=== PATIENT | male | born 1985 | race Caucasian/White ===

== ENCOUNTER 2022-11-09 20:52 | Emergency (ER) | payer SELFPAY ==
[~2022-11-09] VITALS: Ht 195.6 cm; Wt 217.7 kg
[2022-11-10] MEDS ORDERED: ULTRAM50 MG PO (00:07)
[2022-11-10 00:14] VITALS: BP 173/99
== END 2022-11-10 00:28 | disposition home or self-care (01) | DRG 563 ==
LOC: ED 20:52
DX: S83.91XA Sprain of unspecified site of right knee, initial encounter (principal); E66.9 Obesity, unspecified; X50.9XXA Other and unspecified overexertion or strenuous movements or postures, initial encounter

== ENCOUNTER 2022-12-07 00:19 | Emergency (ER) | payer SELFPAY ==
[~2022-12-07] VITALS: Ht 195.6 cm; Wt 220.0 kg
[~2022-12-07 00:19] MED LIST: ULTRAM50 MG PO
[2022-12-07 01:02] LABS: BASO% 0.4 % (0-3); EOS% 4.6 % (0-8); HEMATOCRIT 40.9 % (39.0-50.0); HEMOGLOBIN 12.2 g/dl (14.0-18.0); IMMATURE GRANULOCYTES 0.7 % (0.0-5.0); LYMPH% 32.9 % (15-41); MEAN CELL VOLUME 82.6 fL CALC (80.0-100.0); MEAN CORPUSCULAR HGB 24.6 pG CALC (26.0-32.0); MEAN CORPUSCULAR HGB CONC 29.8 g/dL CAL (32.0-36.0); MONO% 6.9 % (2-13); NEUT# 4.19 thou/uL (1.82-7.42); NEUT% 54.5 % (42-76); RED BLOOD COUNT 4.95 mill/uL (4.70-6.10); RED CELL DISTRI WIDTH 15.3 % (11.5-15.5)
[2022-12-07 01:12] LABS: ALBUMIN 4.3 g/dL (3.2-5.0); ALKALINE PHOSPHATASE 76 u/l (38-126); ANION GAP 11 (6-22 (CALC)); BILIRUBIN, TOTAL 0.2 mg/dL (0.2-1.3); BUN 14 mg/dL (9-20); BUN/CREATININE RATIO 14 (12-20 (CALC)); CARBON DIOXIDE 28 mmol/l (22-30); CHLORIDE 106 mmol/l (95-108); GFR FOR AFR.AMER. > 60 ML/MIN (>=60 (CALC)); GFR OTHER RACES > 60 ML/MIN (>=60 (CALC)); POTASSIUM 4.5 mmol/l (3.5-5.1); SGOT/AST 23 u/l (17-59); SODIUM 140 mmol/l (137-146); TOTAL PROTEIN 7.8 g/dL (6.3-8.2)
[2022-12-07 02:27] LABS: URINE BILIRUBIN - DIPSTICK NEGATIVE (NEGATIVE); URINE BLOOD DIPSTICK NEGATIVE (NEGATIVE); URINE COLOR YELLOW; URINE GLUCOSE - DIPSTICK NEGATIVE (NEGATIVE); URINE KETONE NEGATIVE (NEGATIVE); URINE LEUK ESTERASE NEGATIVE (NEGATIVE); URINE PH 5.5 (4.5-8.0); URINE PROTEIN - DIPSTICK NEGATIVE (NEG-TRACE); URINE SPECIFIC GRAVITY >=1.030; URINE UROBILINOGEN - DIPSTICK 0.2 E.U./dL (0.2)
[2022-12-07 02:28] LABS: URINE NITRITE - DIPSTICK NEGATIVE (Negative)
[2022-12-07] MEDS ORDERED: LISINOP/HCTZ1 TA2 PO (02:30)
[2022-12-07 03:15] VITALS: BP 122/79
== END 2022-12-07 03:20 | disposition home or self-care (01) | DRG 305 ==
LOC: ED 00:19
PROVIDERS: Family Medicine
DX: I10 Essential (primary) hypertension (principal); I89.0 Lymphedema, not elsewhere classified; I87.2 Venous insufficiency (chronic) (peripheral)

== ENCOUNTER 2024-05-25 23:27 | Emergency (ER) | payer BC ==
[~2024-05-25] VITALS: Ht 195.6 cm; Wt 150.0 kg
[~2024-05-25 23:27] MED LIST changes: +LISINOP/HCTZ1 TA2 PO
[2024-05-25 23:36] VITALS: BP 152/87
[2024-05-25] MEDS ORDERED: NITROGLYCERIN 0.4 MG/TAB SL ONE (23:45)
[2024-05-25] MEDS ORDERED: MORPHINE SULFATE 4 MG/ML VIAL IV ONE (23:45)
[2024-05-26] VITALS (16 sets, daily range): BP systolic 94–149; BP diastolic 53–86
[2024-05-26] MEDS ORDERED: LISINOP/HCTZ1 TAB PO (00:08)
[2024-05-26] MEDS ORDERED: NITROGLYCERIN 0.4 MG/TAB SL ONE ×2 (00:14→00:25)
[2024-05-26 00:22] LABS: BASO% 0.4 % (0-3); EOS% 3.9 % (0-8); HEMATOCRIT 43.5 % (39.0-50.0); HEMOGLOBIN 13.3 g/dl (14.0-18.0); IMMATURE GRANULOCYTES 0.4 % (0.0-5.0); LYMPH% 35.9 % (15-41); MEAN CELL VOLUME 86.1 fL CALC (80.0-100.0); MEAN CORPUSCULAR HGB 26.3 pG CALC (26.0-32.0); MEAN CORPUSCULAR HGB CONC 30.6 g/dL CAL (32.0-36.0); MONO% 7.3 % (2-13); NEUT# 3.65 thou/uL (1.82-7.42); NEUT% 52.1 % (42-76); RED BLOOD COUNT 5.05 mill/uL (4.70-6.10); RED CELL DISTRI WIDTH 14.7 % (11.5-15.5)
[2024-05-26 00:34] LABS: ALBUMIN 4.4 g/dL (3.2-5.0); ALKALINE PHOSPHATASE 67 u/l (38-126); ANION GAP 9 (6-22 (CALC)); BILIRUBIN, TOTAL 0.4 mg/dL (0.2-1.3); BUN 13 mg/dL (9-20); BUN/CREATININE RATIO 16 (12-20 (CALC)); CARBON DIOXIDE 27 mmol/l (22-30); CHLORIDE 109 mmol/l (95-108); CREATININE 0.8 mg/dL (0.7-1.3); ESTIMATED GFR 115 ML/MIN (>=90 (CALC)); LIPASE 30 u/l (23-300); POTASSIUM 4.6 mmol/l (3.5-5.1); SGOT/AST 22 u/l (17-59); SODIUM 141 mmol/l (137-146); TOTAL PROTEIN 7.6 g/dL (6.3-8.2)
[2024-05-26 00:40] LABS: D-DIMER 0.4 mg/L (0.19-0.60)
[2024-05-26 00:43] LABS: INTERNATIONAL NORMALIZED RATIO 1.1 RATIO (0.7-1.3)
[2024-05-26 00:47] LABS: PROTHROMBIN TIME 10.3 SECONDS (9.0-12.5)
[2024-05-26] MEDS ORDERED: ACETAMINOPHEN 325 MG/TAB PO ONE (01:50)
== END 2024-05-26 04:05 | disposition home or self-care (01) | DRG 313 ==
LOC: ED 23:27
PROVIDERS: Family Medicine
DX: R07.9 Chest pain, unspecified (principal); Z88.6 Allergy status to analgesic agent

== ENCOUNTER 2024-08-30 05:59 | Emergency (ER) | payer BC ==
[~2024-08-30] VITALS: Ht 195.6 cm; Wt 222.0 kg
[~2024-08-30 05:59] MED LIST changes: +LISINOP/HCTZ1 TAB PO
[2024-08-30 06:07] VITALS: BP 153/88
[2024-08-30] MEDS ORDERED: SODIUM CHLORIDE 0.9% 1,000 ML IV ONE (06:25)
[2024-08-30] MEDS ORDERED: ONDANSETRON HCl 4 MG/2 ML SDV IV ONE (06:25)
[2024-08-30 06:50] LABS: BASO% 0.4 % (0-3); EOS% 0.9 % (0-8); HEMATOCRIT 45.9 % (39.0-50.0); HEMOGLOBIN 14.3 g/dl (14.0-18.0); IMMATURE GRANULOCYTES 0.2 % (0.0-5.0); LYMPH% 16.4 % (15-41); MEAN CELL VOLUME 84.8 fL CALC (80.0-100.0); MEAN CORPUSCULAR HGB 26.4 pG CALC (26.0-32.0); MEAN CORPUSCULAR HGB CONC 31.2 g/dL CAL (32.0-36.0); MONO% 7.6 % (2-13); NEUT# 7.56 thou/uL (1.82-7.42); NEUT% 74.5 % (42-76); RED BLOOD COUNT 5.41 mill/uL (4.70-6.10); RED CELL DISTRI WIDTH 14.1 % (11.5-15.5)
[2024-08-30 07:01] LABS: ALBUMIN 4.9 g/dL (3.2-5.0); ALKALINE PHOSPHATASE 80 u/l (38-126); ANION GAP 15 (6-22 (CALC)); BUN 16 mg/dL (9-20); BUN/CREATININE RATIO 17 (12-20 (CALC)); CARBON DIOXIDE 27 mmol/l (22-30); CHLORIDE 101 mmol/l (95-108); CREATININE 0.9 mg/dL (0.7-1.3); ESTIMATED GFR 110 ML/MIN (>=90 (CALC)); POTASSIUM 4.4 mmol/l (3.5-5.1); SGOT/AST 27 u/l (17-59); SODIUM 138 mmol/l (137-146); TOTAL PROTEIN 8.2 g/dL (6.3-8.2)
[2024-08-30 07:02] LABS: BILIRUBIN, TOTAL 0.8 mg/dL (0.2-1.3)
[2024-08-30 07:14] VITALS: BP 154/90
[2024-08-30] MEDS ORDERED: ZPAK PO (07:34)
[2024-08-30] MEDS ORDERED: AMOX/K CLAV875 M1 PO (07:34)
[2024-08-30 08:01] VITALS: BP 122/70
[2024-08-30 08:13] VITALS: BP 122/70
== END 2024-08-30 08:19 | disposition home or self-care (01) | DRG 149 ==
LOC: ED 05:59
PROVIDERS: Family Medicine
DX: R42 Dizziness and giddiness (principal); R10.9 Unspecified abdominal pain; R05.9 Cough, unspecified
CPT/HCPCS: J2405